=== PATIENT | male | born 1995 | race African-American/Black ===

== ENCOUNTER 2022-02-25 15:11 | Emergency (ER) | payer BC ==
[~2022-02-25] VITALS: Ht 180.3 cm; Wt 87.0 kg
[2022-02-25] MEDS ORDERED: EXCEDRIN PM (15:25)
[2022-02-25] MEDS ORDERED: HYDROCODONE/ACETAMINOPHEN 5/325MG TABLET PO ONE (15:30)
[2022-02-25] MEDS ORDERED: TETANUS, DIPHTHERIA, PERTUSSIS VAC/PF 0.5ML (>10YR OLD) IM ONE (15:30)
[2022-02-25] MEDS ORDERED: LIDOCAINE HCL/PF 1% 10 MG/ML 5ML VIAL INFIL ONE (16:00)
[2022-02-25 16:50] VITALS: BP 151/78
[2022-02-25] MEDS ORDERED: HYDR-4001 MT (18:33)
[2022-02-25] MEDS ORDERED: BO1 TP (18:33)
== END 2022-02-25 18:10 | disposition home or self-care (01) ==
LOC: ER 15:11
DX: S01.511A Laceration without foreign body of lip, initial encounter (principal); W22.8XXA Striking against or struck by other objects, initial encounter; Y93.89 Activity, other specified; Y92.89 Other specified places as the place of occurrence of the external cause; Y99.0 Civilian activity done for income or pay
CPT/HCPCS: 70486; 90471; 99284; J3490